=== PATIENT | male | born 1990 | race Caucasian/White ===

== ENCOUNTER 2025-01-31 09:41 | Emergency (ER) | payer OTHER, SELFPAY ==
[2025-01-31 09:45] VITALS: BP 143/67
[2025-01-31 10:01] LABS: Hematocrit 45.7 % (39.0-52.0); Hemoglobin 15.2 g/dL (13.0-18.0); Mean Corp Hgb Conc. 33.3 g/dL (33.0-37.0); Mean Corpuscular Volume 87.9 fL (80.0-94.0); Nucleated Red Blood Cells % 0 % (-); Platelet Count 201 10^3/uL (130-400); Red Cell Dist. Width 13.2 % (11.5-14.5)
[2025-01-31 10:17] LABS: ALT (SGPT) 45 U/L (0-50); AST (SGOT) 34 U/L (17-59); Albumin 4.6 g/dl (3.5-5.0); Alkaline Phosphatase 43 U/L (38-126); Blood Urea Nitrogen 15 mg/dl (9-20); Calcium 9.4 mg/dl (8.4-10.2); Carbon Dioxide 29 mmol/L (22-30); Chloride 101 mmol/L (98-107); Glucose 96 mg/dl (70-99); Lipase 142 U/L (23-300); Potassium 4.9 mmol/L (3.5-5.1); Sodium 137 mmol/L (135-145); Total Protein 6.9 g/dl (6.3-8.2); eGFR > 60.00
--- NOTE | 2025-01-31 13:24 | ED.GENMED ---
History of Present Illness
General
Chief Complaint: Abdominal Pain
Source: patient
Exam Limitations: none
Time Seen by Provider: 01/31/25 11:39
Nursing documentation reviewed up to this point in time: agreed with
History of Present Illness
History of Present Illness:
Patient is a 34-year-old male who presents to the emergency department for evaluation of a lump in his abdomen. Patient states that he noticed a small 'lump' in his right lower abdomen a few months ago. He was seen at an urgent care facility but
was recommended that he had an outpatient ultrasound to further evaluate�he was unable to schedule this until mid January.
In addition, he has a similar lump above his bellybutton that has become mildly uncomfortable over the past few days. He feels that he may have been burping more frequently.
He denies any fever, chills, or vomiting. He has been having normal bowel movements and urinating without difficulty.
Patient does have a history of a right inguinal hernia which was repaired many years ago.
Review of Systems
Review of Systems
Allergies reviewed?: Yes
All Other Systems: ROS reviewed and negative except as documented in HPI and ROS
Phy Exam
Physical Exam
Physical Exam:
Vitals: Patient's vital signs are stable. Afebrile
General: Patient is very well appearing, no acute distress
Skin: Warm and dry, no rashes or lesions
Head: Normocephalic, atraumatic
Eyes: Sclera nonicteric.
Throat: Protecting airway
Neck: Normal ROM, no cervical spine tenderness, no meningismus
Cardiac: Regular rate and rhythm, no murmurs.
Pulm: Normal respiratory effort, no wheezes, rales, rhonchi heard on exam
Abdomen: Abdomen soft and nontender. No rebound or guarding. Small subcutaneous nodule just to right of umbilicus without overlying skin changes or tenderness. Additionally, a midline swelling is noted just superior to umbilicus. Overlying skin
is normal with no redness, ulceration, or visible pulsations. Swelling becomes more prominent on standing and with coughing.
Extremities: No evidence of cyanosis or edema
Neuro: AAOx3. Grossly intact.
Psychiatric: Normal affect.
Course
Orders/Labs/Results
Orders:
Orders
01/31/25 09:52
Complete Blood Count/With Diff Urgent
Comprehensive Metabolic Panel Urgent
Lipase Urgent
01/31/25 12:22
US Abdomen Limited Urgent
Comment: 1 RLQ (? lipoma), 1 above umbilicus (? hernia)
Reason For Exam: Eval 2 lumps
Abnormal Lab Results
01/31/25
09:52
MPV 10.7 H fL
(7.4-10.4)
Absolute Lymphs (auto) 1.1 L 10^3/uL
(1.2-3.4)
Monocytes % 10.1 H %
(1.7-9.3)
01/31/25 09:52
01/31/25 09:52
Vital Signs
Initial and Last Documented VS:
Initial Vital Signs
Temp Pulse Resp BP Pulse Ox
98 F 59 19 143/67 100
01/31/25 09:45 01/31/25 09:45 01/31/25 09:45 01/31/25 09:45 01/31/25 09:45
Last Documented Vital Signs
Temp Pulse Resp BP Pulse Ox
98 F 63 17 118/73 99
01/31/25 09:45 01/31/25 14:20 01/31/25 14:20 01/31/25 14:20 01/31/25 14:20
MDM/Problems Addressed
Differential Diagnosis Includes:
Not limited to: Lipoma, ventral hernia, supraumbilical hernia, hematoma, abscess, etc.
MDM/Problems Addressed:
34-year-old male presenting with 2 concerning abdominal masses which have been present for at least a few weeks. No fevers, vomiting, changes in bowel habits. He has not noticed a significant increase in size. Very minimal tenderness in area of
concern just above umbilicus. Vital stable. Physical exam as above.
Labs were sent prior to my evaluation without clinically significant abnormalities. An ultrasound was obtained, which shows a fat-containing supraumbilical hernia. No abnormal findings noted other area of concern in right mid abdomen.
Area in right mid abdomen possible small lipoma. No overlying skin changes or fluctuance to suggest abscess or infectious process.
Supraumbilical fat-containing hernia without significant pain. Unable to fully reduce in ED however no overlying skin changes. There is no bowel involvement or concern for ischemia
He is comfortable with discharge home with outpatient general surgery follow-up. Contact permission provided along with strict return precautions. Case discussed with attending physician.
Chronic conditions affecting care:
N/A
Acute Exacerbation and/or Progression of Chronic Illness:
N/A
*Radiology
Radiology exam reviewed: radiology read reviewed
*Pulse Oximetry
SaO2: 100
Oxygen Mode of Delivery: Room air
Patient hypoxic: no
*EKG
Interpreted by ED Provider?: NA
*Diagnostic Tech Interpretation
Rate: Diagnostic Tech- N/A
*Critical Care Note
Total Time (30-74mins, 75-104mins- exclusive of procedures): Not Applicable
ED Attending Note
-
Portions of this chart may have been created with voice recognition software.� Occasional wrong word or��sound alike� substitutions may have occurred due to the inherent limitations of voice recognition software.
Discharge Plan
Departure
Patient Disposition: Home (Routine Discharge)
Date of Disposition: 01/31/25
Time of Disposition: 14:23
Patient with high blood pressure during this ER visit?: Yes
Condition: Good
Discharge Problem:
Supraumbilical hernia
Instructions: Abdominal Hernia, BLOOD PRESSURE
Referrals:
NONE,* [Family Provider, Internal Medicine]
Valentino Pina MD [Active, Surgical] - Next open appointment
Activity Restrictions/Additional Instructions:
RETURN TO THE EMERGENCY DEPARTMENT ANY FEVER, CHILLS, PERSISTENT/WORSENING ABDOMINAL PAIN, REDNESS OR WARMTH OF SKIN AROUND HERNIA, INTRACTABLE VOMITING, CHANGES IN BOWEL HABITS, OR ANY OTHER CONCERNS
- As discussed, your ultrasound showed a small supraumbilical fat-containing hernia.
- Follow-up with general surgery for further evaluation/management as you may require surgical repair.
Monitor your symptoms closely and return to the emergency department with any acute worsening/new symptoms or other concern
Interventions
Interventions:
*Risk Screen - Suicide Last Done: 01/31/25 09:45
*General Assessment Last Done: 01/31/25 09:45
*Neglect/Abuse Screening Last Done: 01/31/25 09:45
*ED- Fall Risk Assessment Last Done: 01/31/25 12:17
*ED COVID-19 Vaccine History Last Done: 01/31/25 12:17
*ED Influenza Vaccine History Last Done: 01/31/25 12:17
*Nursing Disposition Last Done: 01/31/25 14:42
HZ-Sbwubi-Pkyfzbhqoc Assessment Last Done: 01/31/25 12:17
Discharge Date and Time
Discharge Date/Time: 01/31/25 14:42
Print Language: ARMENIAN
[2025-01-31 14:20] VITALS: BP 118/73
== END 2025-01-31 14:42 | disposition home or self-care (01) ==
LOC: EMR 09:41
PROVIDERS: Emergency Medicine; EMERGENCY PHYSICIAN Emergency Medicine
DX: K42.9 Umbilical hernia without obstruction or gangrene (principal)
CPT/HCPCS: 99284; 76705; 80053; 83690; 85025